=== PATIENT | female | born 1945 | race Caucasian/White ===

== ENCOUNTER → 2023-03-30 12:36 | Outpatient (BNVA) | payer MEDICARE, OTHER, SELFPAY | PROVIDERS: PCP Family Medicine; Referring Provider Family Medicine; Visit Provider Physician Assistant Surgical | DX: J43.2 Centrilobular emphysema (principal); Z79.51 Long term (current) use of inhaled steroids; Z79.899 Other long term (current) drug therapy; Z87.891 Personal history of nicotine dependence; I27.20 Pulmonary hypertension, unspecified; R91.1 Solitary pulmonary nodule; K21.9 Gastro-esophageal reflux disease without esophagitis | CPT/HCPCS: 99214 ==

== ENCOUNTER → 2023-09-02 14:32 | Outpatient (BNVA) | payer MEDICARE, OTHER, SELFPAY | PROVIDERS: PCP Family Medicine; Referring Provider Family Medicine; Visit Provider Student in an Organized Health Care Education/Training Program | DX: J43.2 Centrilobular emphysema (principal); I27.20 Pulmonary hypertension, unspecified; R91.1 Solitary pulmonary nodule; K21.9 Gastro-esophageal reflux disease without esophagitis | CPT/HCPCS: 99214 ==

== ENCOUNTER → 2024-03-02 11:03 | Outpatient (BNVA) | payer MEDICARE, OTHER, SELFPAY | PROVIDERS: PCP Family Medicine; Referring Provider Family Medicine; Visit Provider Physician Assistant Surgical | DX: R07.89 Other chest pain (principal); R06.02 Shortness of breath; R60.0 Localized edema | CPT/HCPCS: 76604; 99214 ==

== ENCOUNTER 2024-03-02 12:53 | Outpatient (CLI) | payer MEDICARE, OTHER, SELFPAY ==
--- NOTE | 2024-03-02 12:30 | DI.RAD_ITS ---
Exam(s) XR CHEST 2V PA LATERAL EXAM: XR CHEST 2V PA LATERAL CLINICAL HISTORY: pleural effusion? pulmonary nodule, pulmonary hypertension, copd R91.1.. TECHNIQUE: 2D digital imaging was performed. COMPARISON: CR XR CHEST 2VW (D) from 06/22/[address] CHEST LOW DOSE FOLLOW UP from 01/12/2024 CR XR RIBS ONLY LT from 02/28/2024 FINDINGS: 2 views: Mild cardiomegaly. No obvious mediastinal widening There are advanced COPD emphysematous changes in lung perry again noted, most prominent in the right upper lung field. No obvious new infiltrates although there are now small bilateral pleural effusio ns which were not evident on chest x-ray of 06/22/2022. However, small bilateral pleural effusions w ere evident on recent outside [facility] chest CT scan of 01/12/2024. These may be sligh tly larger at the present time. There is no airspace pulmonary edema. No Minerva B lines to suggest fluid in the interlobular septae. 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 There are no obvious new compression fractures evident in thoracic ve rtebral bodies. IMPRESSION: Mild cardiomegaly. Advanced COPD emphysematous changes without obvious new confluent infiltrates. Small symmetrical bilateral pleural effusions without evidence of airspace pulmonary edema. Other findings as above. DATA REPOSITORY: RADIATION DOSE DELIVERED:
== END 2024-03-02 13:13 ==
LOC: DI 12:59
PROVIDERS: PCP Family Medicine; Visit Provider Physician Assistant Surgical
DX: K21.9 Gastro-esophageal reflux disease without esophagitis; J43.2 Centrilobular emphysema
CPT/HCPCS: 36415; 76604; 80053; 99214; 71046; 83880; 85025

== ENCOUNTER 2024-03-02 13:08 | Outpatient (CLI) | payer MEDICARE, OTHER, SELFPAY ==
[2024-03-02 13:21] LABS: Abs Immature Grans 0.01 10^3/uL (0.0-0.06); Absolute Basophil Count 0.07 10^3/uL (0.0-0.2); Absolute Eosinophil Count 0.17 10^3/uL (0.0-0.7); Absolute Lymphocyte Count 0.76 10^3/uL (1.2-3.4); Absolute Monocyte Count 0.41 10^3/uL (0.1-0.8); Basophils % 1.1 %; Eosinophils % 2.7 %; HCT 39.6 % (36.0-46.0); HGB 12.6 g/dL (11.2-15.7); Immature Grans % 0.2 %; Lymphocytes % 12.2 %; MCH 33.3 pg (27.0-33.0); MCHC 31.8 % (32.0-36.0); MCV 105 fL (80-95); MPV 8.8 fL (8.0-11.0); Monocytes % 6.6 %; Neutrophils % 77.2 %; Platelet Count 333 10^3/uL (130-400); RBC 3.78 10^6/uL (3.93-5.22); RDW 12.6 % (11.7-14.6); RDW-SD 48.7 fL; WBC 6.22 10^3/uL (4.4-10.8)
[2024-03-02 13:43] LABS: ALT 17 U/L (14-59); AST 17 U/L (15-37); Albumin 3.3 g/dL (3.4-5.0); Alkaline Phosphatase 142 U/L (46-116); Anion Gap 9.1 mmol/L (3-11); BUN 28 mg/dL (7-18); Bilirubin, Total 0.43 mg/dL (0.2-1.0); CO2 24.9 mmol/L (21.0-32.0); CREATININE 0.9 mg/dL (0.55-1.02); Calcium 9.7 mg/dL (8.5-10.1); Chloride 106 mmol/L (98-107); Estimated GFR 65.84 (mL/min/1.73m2); Glucose 91 mg/dL (74-106); NT-proBNP 1063 pg/mL (<300); Potassium 3.5 mmol/L (3.5-5.1); Sodium 140 mmol/L (136-145); Total Protein 6.9 g/dL (6.4-8.2)
== END 2024-03-02 13:09 | disposition home or self-care (01) ==
LOC: LBO 13:09
PROVIDERS: PCP Family Medicine; Visit Provider Physician Assistant Surgical
DX: I50.810 Right heart failure, unspecified (principal); R91.1 Solitary pulmonary nodule; I27.20 Pulmonary hypertension, unspecified; J90 Pleural effusion, not elsewhere classified
CPT/HCPCS: 36415; 80053; 83880; 85025

== ENCOUNTER → 2024-04-03 09:56 | Outpatient (BNVA) | payer MEDICARE, OTHER, SELFPAY | PROVIDERS: PCP Family Medicine; Referring Provider Family Medicine; Visit Provider Physician Assistant Surgical | DX: J43.2 Centrilobular emphysema (principal); I27.20 Pulmonary hypertension, unspecified; R91.1 Solitary pulmonary nodule; K21.9 Gastro-esophageal reflux disease without esophagitis | CPT/HCPCS: 99214 ==

== ENCOUNTER → 2024-06-20 13:30 | Outpatient (BNVA) | payer MEDICARE, OTHER, SELFPAY | PROVIDERS: PCP Family Medicine; Referring Provider Family Medicine; Visit Provider Physician Assistant Surgical | DX: J43.2 Centrilobular emphysema (principal); I27.20 Pulmonary hypertension, unspecified; R91.1 Solitary pulmonary nodule; K21.9 Gastro-esophageal reflux disease without esophagitis; J96.91 Respiratory failure, unspecified with hypoxia | CPT/HCPCS: 94618; 99214 ==

== ENCOUNTER → 2024-10-17 12:46 | Outpatient (BNVA) | payer MEDICARE, OTHER, SELFPAY | PROVIDERS: PCP Family Medicine; Referring Provider Family Medicine; Visit Provider Physician Assistant Surgical | DX: J43.2 Centrilobular emphysema (principal); I27.20 Pulmonary hypertension, unspecified; R91.1 Solitary pulmonary nodule; K21.9 Gastro-esophageal reflux disease without esophagitis; J96.91 Respiratory failure, unspecified with hypoxia | CPT/HCPCS: 99214; 36415 ==

== ENCOUNTER 2024-10-17 19:01 | Outpatient (REF) | payer MEDICARE, OTHER, SELFPAY ==
[2024-10-18 08:15] LABS: Anion Gap 7.1 mmol/L (3-11); BUN 18 mg/dL (7-18); CO2 30.9 mmol/L (21.0-32.0); CREATININE 0.4 mg/dL (0.55-1.02); Calcium 9.2 mg/dL (8.5-10.1); Chloride 103 mmol/L (98-107); Estimated GFR 101.24 (mL/min/1.73m2); Glucose 88 mg/dL (74-106); Potassium 3.9 mmol/L (3.5-5.1); Sodium 141 mmol/L (136-145)
[2024-10-18 09:21] LABS: NT-proBNP 582 pg/mL (<300)
== END 2024-10-17 19:02 | disposition home or self-care (01) ==
LOC: LBN 19:01
PROVIDERS: PCP Family Medicine; Visit Provider Physician Assistant Surgical
DX: I50.9 Heart failure, unspecified (principal); I27.20 Pulmonary hypertension, unspecified; J43.2 Centrilobular emphysema
CPT/HCPCS: 80048; 83880

== ENCOUNTER → 2025-01-17 12:23 | Outpatient (BNVA) | payer MEDICARE, OTHER, SELFPAY | PROVIDERS: PCP Physician Assistant; Referring Provider Family Medicine; Visit Provider Physician Assistant Surgical | DX: J43.2 Centrilobular emphysema (principal); I27.20 Pulmonary hypertension, unspecified; R91.1 Solitary pulmonary nodule; K21.9 Gastro-esophageal reflux disease without esophagitis; J96.91 Respiratory failure, unspecified with hypoxia; Z87.891 Personal history of nicotine dependence | CPT/HCPCS: 99214 ==

== ENCOUNTER → 2025-04-23 10:02 | Outpatient (BNVA) | payer MEDICARE, OTHER, SELFPAY | PROVIDERS: PCP Physician Assistant; Referring Provider Family Medicine; Visit Provider Internal Medicine Pulmonary Disease | DX: J43.2 Centrilobular emphysema (principal); Z23 Encounter for immunization; Z29.11 Encounter for prophylactic immunotherapy for respiratory syncytial virus (RSV); Z87.891 Personal history of nicotine dependence; I27.20 Pulmonary hypertension, unspecified | CPT/HCPCS: 99214; 90471; 90679; 90684 ==